=== PATIENT | male | born 1985 | race Caucasian/White ===

== ENCOUNTER 2017-10-13 17:38 | Emergency (ER) | payer SELFPAY ==
[~2017-10-13] VITALS: Ht 175.3 cm; Wt 66.8 kg
[2017-10-13 17:43] VITALS: BP 124/82
[2017-10-13] MEDS ORDERED: KEFLEX500 MG PO (19:03)
[2017-10-13] MEDS ORDERED: TRAMADOL HCL50 MG PO (19:25)
== END 2017-10-13 20:12 | disposition home or self-care (01) ==
LOC: EME 17:38
DX: S62.604B Fracture of unspecified phalanx of right ring finger, initial encounter for open fracture (principal); W23.0XXA Caught, crushed, jammed, or pinched between moving objects, initial encounter; Z23 Encounter for immunization
CPT/HCPCS: 99281; 99284; J0696